=== PATIENT | female | born 2000 | race Hispanic/Latino ===

== ENCOUNTER 2024-04-27 21:10 | Emergency (ER) | payer OTHER ==
[~2024-04-27] VITALS: Ht 170.2 cm; Wt 100.0 kg
[~2024-04-27 21:10] MED LIST: AMOXICILLIN500 MG PO
[2024-04-27] MEDS ORDERED: ondansetron HCL 4 MG TAB PO ONE (21:45)
[2024-04-27 22:06] LABS: INFLUENZA B NAA NEGATIVE (NEGATIVE); RESPIRATORY SYNCYTIAL VIR NAA NEGATIVE (NEGATIVE)
[2024-04-27] MEDS ORDERED: FAMOTIDINE 20 MG/ 2 ML VIAL IV ONE (22:15)
[2024-04-27] MEDS ORDERED: LACTATED RINGER'S 1,000 ML IV ONE (22:15)
[2024-04-27] MEDS ORDERED: droPERidol 5 MG/2 ML VIAL IV ONE (22:15)
[2024-04-27 22:29] LABS: BILIRUBIN, URINE NEGATIVE (negative); BLOOD/HGB, URINE NEGATIVE (Negative); KETONE, URINE TRACE (Negative); LEUK ESTERASE, URINE NEGATIVE (negative); NITRITE, URINE NEGATIVE (negative)
[2024-04-27 22:31] LABS: BASOPHILS 0.5 % (0-2); EOSINOPHILS 0.7 % (0-6); HEMATOCRIT 42.9 % (35.0-50.0); HEMOGLOBIN 14.5 g/dL (12.0-18.0); LYMPHOCYTES 18.1 % (24-44); MCH 30.5 (27-36); MCHC 33.7 g/dl (30-36); MCV 90.7 fl (81-99); MONOCYTES 12.2 % (0-12); NEUTROPHILS 68.5 % (39-80); PLATELET COUNT 226 K/uL (140-440); RBC 4.73 M/ul (4.3-5.7); RDW 12.6 (10.5-15.0)
[2024-04-27 22:53] LABS: ALBUMIN 3.5 g/dL (3.4-5.0); ALBUMIN/GLOBULIN RATIO 0.9 (1.1-2.4); ANION GAP 14.5 (7-21); BILIRUBIN, TOTAL 0.3 ng/dL (0.2-1.0); BUN/CREATININE RATIO 9.52 (6.0-28.6); CALCIUM 8.6 mg/dL (8.5-10.1); CREATININE, SERUM 0.63 mg/dL (0.55-1.02); POTASSIUM 3.5 mmol/L (3.5-5.1); PROTEIN, TOTAL 7.4 g/dL (6.4-8.2); TSH, 3RD GENERATION 3.975 uIU/mL (0.358-3.740)
[2024-04-27] MEDS ORDERED: ALBUTEROL SULFATE 8 GM HOME.PACK INH ONE (23:15)
[2024-04-27] MEDS ORDERED: ONDANSETRON 4 MG HOME.PACK SL ONE (23:15)
[2024-04-27] MEDS ORDERED: CEFTRIAXONE/SODIUM CHLORIDE 2 GM/100 ML PIGGYBACK IV ONE (23:15)
[2024-04-27] MEDS ORDERED: INHALER, ASSIST DEVICES 1 EACH SPACER MISC ONE (23:15)
[2024-04-27] MEDS ORDERED: ONDANSETRON ODT4 MG PO (23:16)
[2024-04-27] MEDS ORDERED: AMOX TR-K CLV1 EAC1 PO (23:16)
[2024-04-27 23:54] VITALS: BP 167/93
== END 2024-04-27 23:56 | disposition home or self-care (01) ==
LOC: ED 21:10
PROVIDERS: Internal Medicine
DX: J18.9 Pneumonia, unspecified organism (principal)
CPT/HCPCS: 36415; 71045; 80053; 81003; 84443; 84703; 85025; 87502; 94640; 94664; 96361; 96365; 96375; 99284-25; A9270; J0696; J1790; J7121; U0002